=== PATIENT | male | born 1975 | race Caucasian/White ===

== ENCOUNTER 2022-04-01 09:21 | Day surgery (SDCO) | payer OTHER ==
[~2022-04-01] VITALS: Ht 172.7 cm; Wt 72.3 kg
[2022-04-01 10:06] LABS: BASOPHIL 0.2 % (0-2); EOSINOPHIL 0 % (0-5); HCT 49.6 % (42.0-52.0); HGB 17.9 g/dl (13.2-18.0); LYMPHOCYTE 8.3 % (15-48); MCHC 36.1 g/dL (32.0-36.0); MCV 91.3 fL (78.0-100.0); MONOCYTE 7.4 % (0-12); MPV 8.3 fL (6.0-9.5); NEUTROPHIL 83.6 % (41-80); NRBC 0; PLT 296 K/uL (150-400); RBC 5.43 M/uL (4.70-6.00); RDW 12.9 % (11.5-14.0); WBC 22.8 K/uL (4.0-10.5)
[2022-04-01 10:35] LABS: ALBUMIN 4.6 g/dL (3.4-5.0); BILIRUBIN - TOTAL 0.8 mg/dL (0.2-1.0); BUN/CREAT RATIO (CALC) 19.1 RATIO; CREATININE 0.89 mg/dL (0.67-1.17); GLOBULIN (CALCULATION) 4.5 g/dL; TOTAL PROTEIN 9.1 g/dL (6.4-8.2)
[2022-04-01 12:09] LABS: BILIRUBIN 1+ mg/dL (NEGATIVE); BLOOD 2+ Ery/uL (NEGATIVE); CLARITY CLEAR (CLEAR); COLOR YELLOW (YELLOW); GLUCOSE (U) NORMAL (NORMAL); LEUKOCYTES NEGATIVE Leu/uL (NEGATIVE); NITRITE NEGATIVE (NEGATIVE); PROTEIN 2+ mg/dL (NEGATIVE); SPECIFIC GRAVITY >=1.030 (1.001-1.030); UROBILINOGEN 0.2 mg/dL (0.2-1.0)
[2022-04-01 12:22] LABS: MUCOUS TRACE
[2022-04-01 12:23] LABS: BACTERIA TRACE
[2022-04-01 12:24] LABS: URINARY RBC RARE
[2022-04-02 05:58] LABS: HCT 44.3 % (42.0-52.0); HGB 15.5 g/dl (13.2-18.0); MCH 32.9 pg (25.0-31.0); MCV 94.1 fL (78.0-100.0); MPV 8.4 fL (6.0-9.5); RBC 4.71 M/uL (4.70-6.00); RDW 12.8 % (11.5-14.0); WBC 13.2 K/uL (4.0-10.5)
[2022-04-02 06:21] LABS: BUN/CREAT RATIO (CALC) 17.2 RATIO; CREATININE 0.87 mg/dL (0.67-1.17); POTASSIUM 3.4 mmol/L (3.5-5.1)
[2022-04-03 06:36] LABS: HGB 14.8 g/dl (13.2-18.0); MCH 32.5 pg (25.0-31.0); MCHC 34.4 g/dL (32.0-36.0); MCV 94.5 fL (78.0-100.0); MPV 8.3 fL (6.0-9.5); RBC 4.55 M/uL (4.70-6.00); RDW 12.6 % (11.5-14.0); WBC 7.8 K/uL (4.0-10.5)
[2022-04-03 07:01] LABS: BUN/CREAT RATIO (CALC) 12.5 RATIO; CREATININE 0.72 mg/dL (0.67-1.17); POTASSIUM 3.9 mmol/L (3.5-5.1)
[2022-04-03] MEDS ORDERED: ONDANSETRON ODT8 MG PO (09:57)
== END 2022-04-03 11:45 | disposition home or self-care (01) ==
LOC: FER 09:21 → FMS 14:29
PROVIDERS: Emergency Medicine; ADMIT Family Medicine
DX: K52.9 Noninfective gastroenteritis and colitis, unspecified (principal); E87.6 Hypokalemia; R73.9 Hyperglycemia, unspecified; E86.0 Dehydration; F17.210 Nicotine dependence, cigarettes, uncomplicated; Z20.822 Contact with and (suspected) exposure to COVID-19
CPT/HCPCS: 36415; 74019; 80048; 80053; 81001; 82550; 83036; 83690; 85025; 87040; 87045; 87046; C9113; G0378; J1170; J1650; J2270; J2405; J2543; J2550; J3475; J3480; J7030; Q9967; U0002